=== PATIENT | female | born 1975 | race African-American/Black ===

== ENCOUNTER 2017-04-03 18:21 | Emergency (ER) | payer OTHER | END 2017-04-03 22:36 | disposition home or self-care (01) | LOC: ED 18:21 | DX: R14.0 Abdominal distension (gaseous) (principal); E78.5 Hyperlipidemia, unspecified; I10 Essential (primary) hypertension; K21.9 Gastro-esophageal reflux disease without esophagitis; Z79.899 Other long term (current) drug therapy | CPT/HCPCS: J1885; J2405; Q0092 ==